=== PATIENT | male | born 1990 | race African-American/Black ===

== ENCOUNTER 2016-09-26 13:08 | Emergency (ER) | payer OTHER ==
[~2016-09-26] VITALS: Ht 177.8 cm; Wt 61.2 kg
[~2016-09-26 13:08] MED LIST: ALBUTEROL0.09 MG/A2 IH; ATARAX25 MG PO; BACTRIM DS 8001 TA1 PO; BIAXIN500 MG PO; CLEOCIN150 MG PO; CLINDAMYCIN HC300 MG PO; DAYPRO600 M1 PO; FLEXERIL10 MG PO; HYDROCODONE BIT1 T11 PO; IBU800 MG PO; IRON1 CHI; LOMOTIL 0.025 M1 TA1 PO; MOTRIN800 MG PO; Motrin,Rufen800 MG PO; NAPROSYN500 MG PO; NKHM; NORCO 325 MG-51 TAB PO; NORCO 5-325 TA1 EACH PO; PEPCID20 MG PO; PHENERGAN25 M1 PO; PREDNICOT20 MG PO; Peridex 473 ML473 ML PO; Phenergan25 MG PO; VIBRAMYCIN100 MG PO; ZITHROMAX Z PA250 MG PO; ZOFRAN ODT4 MG SL
[2016-09-26] MEDS ORDERED: Zofran4 MG PO (14:27)
[2016-09-26] MEDS ORDERED: TYLENOL W/CODEI1 TA4 PO (14:27)
[2016-09-26] MEDS ORDERED: ZITHROMAX250 MG PO (14:27)
== END 2016-09-26 14:37 | disposition home or self-care (01) ==
LOC: ED 13:08
DX: H66.001 Acute suppurative otitis media without spontaneous rupture of ear drum, right ear (principal); F17.200 Nicotine dependence, unspecified, uncomplicated; Z88.0 Allergy status to penicillin

== ENCOUNTER 2016-12-02 17:50 | Emergency (ER) | payer OTHER ==
[~2016-12-02] VITALS: Wt 61.2 kg
[~2016-12-02 17:50] MED LIST changes: +TYLENOL W/CODEI1 TA4 PO; +ZITHROMAX250 MG PO; +Zofran4 MG PO
[2016-12-02] MEDS ORDERED: OMNICEF300 MG PO (18:50)
== END 2016-12-02 18:24 | disposition home or self-care (01) ==
LOC: ED 17:50
DX: H65.01 Acute serous otitis media, right ear (principal); F17.200 Nicotine dependence, unspecified, uncomplicated; Z88.0 Allergy status to penicillin

== ENCOUNTER 2017-04-29 13:12 | Emergency (ER) | payer MEDICAID ==
[~2017-04-29 13:12] MED LIST changes: +OMNICEF300 MG PO
[2017-04-29 13:56] LABS: BASO # 0.1 10*3/uL (0.0-0.1); BASO % 0.4 % (0.0-1.0); EOS # 0.1 10*3/uL (0.0-0.4); EOS % 0.5 % (1.0-4.0); HEMATOCRIT 46.3 % (42.0-52.0); HEMOGLOBIN 15.9 g/dl (14.0-18.0); LYMPH # 2.2 10*3/uL (1.3-4.4); LYMPH % 18.2 % (27.0-41.0); MEAN CELL VOLUME 87.4 fl (80.0-94.0); MEAN CORPUSCULAR HGB CONC 34.3 g/dl (33.0-37.0); MEAN PLATELET VOLUME 8.9 fl (9.6-12.3); MONO # 0.8 10*3/uL (0.1-1.0); MONO % 6.8 % (3.0-9.0); NEUT # 8.9 10*3/uL (2.3-7.9); NEUT % 73.8 % (47.0-73.0); PLATELET COUNT AUTOMATED 348 10*3/uL (130-400); RED CELL DISTRI WIDTH 13.4 % (0-14.5); WHITE BLOOD COUNT 12.1 10*3/uL (4.8-10.8)
[2017-04-29 14:14] LABS: ALBUMIN 4.7 gm/dl (3.1-4.5); ALKALINE PHOSPHATASE 58 U/L (45-117); BILIRUBIN, TOTAL 0.4 mg/dl (0.2-1.0); BUN 16 mg/dl (7-24); CARBON DIOXIDE 29 mmol/L (21-32); CHLORIDE 96 mmol/L (98-107); EST GLOM FILT AFRICAN AMERICAN > 60 ml/min; GLUCOSE 95 mg/dL (65-99); SGOT/AST 21 IU/L (3-35); SGPT/ALT 17 U/L (12-78); SODIUM 133 mmol/L (136-145)
[2017-04-29] MEDS ORDERED: ZOFRAN ODT4 MG SL (15:42)
== END 2017-04-29 16:23 | disposition home or self-care (01) ==
LOC: ED 13:12
PROVIDERS: Nurse Practitioner Family
DX: K52.9 Noninfective gastroenteritis and colitis, unspecified (principal); Z88.0 Allergy status to penicillin

== ENCOUNTER 2019-08-22 22:27 | Emergency (ER) | payer OTHER ==
[~2019-08-22] VITALS: Ht 177.8 cm; Wt 61.2 kg
[~2019-08-22 22:27] MED LIST changes: +CLINDAMYCIN150 MG PO
== END 2019-08-23 | disposition left against medical advice (07) ==
LOC: ED 22:27
DX: Z11.3 Encounter for screening for infections with a predominantly sexual mode of transmission (principal); Z53.21 Procedure and treatment not carried out due to patient leaving prior to being seen by health care provider

== ENCOUNTER 2020-06-22 13:44 | Emergency (ER) | payer OTHER ==
[~2020-06-22] VITALS: Ht 177.8 cm; Wt 61.2 kg
== END 2020-06-22 14:35 | disposition home or self-care (01) ==
LOC: ED 13:44
DX: R11.2 Nausea with vomiting, unspecified (principal); Z88.0 Allergy status to penicillin; Z79.899 Other long term (current) drug therapy

== ENCOUNTER 2020-09-19 14:28 | Emergency (ER) | payer OTHER ==
[~2020-09-19] VITALS: Ht 177.8 cm; Wt 61.2 kg
== END 2020-09-19 16:57 | disposition home or self-care (01) ==
LOC: ED 14:28
DX: R11.2 Nausea with vomiting, unspecified (principal); F17.200 Nicotine dependence, unspecified, uncomplicated; Z88.0 Allergy status to penicillin

== ENCOUNTER 2021-02-10 20:17 | Emergency (ER) | payer OTHER ==
[~2021-02-10] VITALS: Ht 177.8 cm; Wt 61.2 kg
[2021-02-10] MEDS ORDERED: VIBRAMYCIN100 MG PO (20:29)
== END 2021-02-10 20:34 | disposition home or self-care (01) ==
LOC: ED 20:17
DX: H65.91 Unspecified nonsuppurative otitis media, right ear (principal); Z88.0 Allergy status to penicillin

== ENCOUNTER 2021-02-13 18:58 | Emergency (ER) | payer OTHER ==
[2021-02-13] MEDS ORDERED: ZOFRAN4 MG PO (19:47)
== END 2021-02-13 19:45 | disposition home or self-care (01) ==
LOC: ED 18:58
DX: K52.9 Noninfective gastroenteritis and colitis, unspecified (principal); R11.2 Nausea with vomiting, unspecified; Z88.0 Allergy status to penicillin; Z79.2 Long term (current) use of antibiotics

== ENCOUNTER 2021-06-16 07:14 | Emergency (ER) | payer OTHER ==
[~2021-06-16] VITALS: Ht 177.8 cm; Wt 61.2 kg
[~2021-06-16 07:14] MED LIST changes: +ZOFRAN4 MG PO
[2021-06-16] MEDS ORDERED: VIBRA-TAB100 MG PO (09:40)
== END 2021-06-16 09:58 | disposition home or self-care (01) ==
LOC: ED 07:14
DX: J18.9 Pneumonia, unspecified organism (principal); Z20.822 Contact with and (suspected) exposure to COVID-19; Z88.0 Allergy status to penicillin; Z79.2 Long term (current) use of antibiotics; Z79.899 Other long term (current) drug therapy

== ENCOUNTER 2021-09-21 17:49 | Emergency (ER) | payer OTHER ==
[~2021-09-21 17:49] MED LIST changes: +VIBRA-TAB100 MG PO
== END 2021-09-21 20:02 | disposition home or self-care (01) ==
LOC: ED 17:49
DX: S50.02XA Contusion of left elbow, initial encounter (principal); W18.39XA Other fall on same level, initial encounter; Y93.89 Activity, other specified; Y92.89 Other specified places as the place of occurrence of the external cause; Y99.8 Other external cause status